=== PATIENT | female | born 1995 ===

== ENCOUNTER 2021-11-09 06:33 | Observation (INO) | payer BC ==
[2021-11-09] MEDS: Lactated Ringers 1,000 ML IV SCH ×3 (07:15→08:33)
[2021-11-09] MEDS ORDERED: Lidocaine 2% 5 ML SDV ONE (07:57)
[2021-11-09] MEDS ORDERED: Phenylephrine 1% 10 MG/ML SDV ONE (07:57)
[2021-11-09] MEDS ORDERED: Ondansetron 4 MG/2 ML SDV ONE (07:58)
[2021-11-09] MEDS ORDERED: ePHEDrine 50 MG/ML SDV IVPUSH PRN ×2 (07:59)
[2021-11-09] MEDS ORDERED: Ropivacaine in NACL,ISO-OSM/PF 800 MG in Premix Bag 1 BAG EPIDUR SCH ×2 (08:00)
[2021-11-09] MEDS ORDERED: Terbutaline 1 MG/ML SDV SUBCUT ONE (08:01)
== END 2021-11-09 12:05 | disposition home or self-care (01) ==
LOC: MW.OB 06:33 → INTOOBSV 06:33
PROVIDERS: ADMIT Obstetrics & Gynecology; ATTEND Obstetrics & Gynecology
DX: O32.1XX1 Maternal care for breech presentation, fetus 1 (principal); Z79.899 Other long term (current) drug therapy; Z3A.37 37 weeks gestation of pregnancy; Z01.812 Encounter for preprocedural laboratory examination; Z20.822 Contact with and (suspected) exposure to COVID-19
CPT/HCPCS: 36415; 51702; 59025; 59412; 76815; 85025; 86592; 86850; 86900; 86901; 87635; 90384; J2370; J2405; J3105; J7120; J2790; U0002

== ENCOUNTER 2021-11-19 04:53 | Inpatient (IN) | payer BC ==
[2021-11-19] MEDS: Lactated Ringers 1,000 ML IV SCH ×3 (05:10→08:25)
[2021-11-19] MEDS ORDERED: Sodium Chloride 0.9% 2.5 ML Syringe FLUSH PRN (05:22)
[2021-11-19] MEDS ORDERED: Citric Acid/Sodium Citrate Solution 30 ML Cup PO ONE (05:22)
[2021-11-19] MEDS ORDERED: Sodium Chloride 0.9% 20 ML SDV IV PRN (05:22)
[2021-11-19] MEDS ORDERED: Sodium Chloride 0.9% 10 ML Syringe FLUSH PRN (05:22)
[2021-11-19] MEDS ORDERED: Oxytocin/0.9 % Sodium Chloride 30 UNIT/500 ML BAG IV SCH (05:30)
[2021-11-19] MEDS ORDERED: fentaNYL 100 MCG/2 ML SDV ONE (06:04)
[2021-11-19] MEDS ORDERED: ceFAZolin 1 GM Vial ONE ×2 (06:04→06:05)
[2021-11-19] MEDS ORDERED: fentaNYL 100 MCG/2 ML SDV IVPUSH PRN (06:04)
[2021-11-19] MEDS ORDERED: Ondansetron 4 MG/2 ML SDV ONE ×2 (06:04)
[2021-11-19] MEDS ORDERED: diphenhydrAMINE 50 MG/ML SDV IVPUSH PRN ×2 (06:04→09:16)
[2021-11-19] MEDS ORDERED: ePHEDrine 50 MG/ML SDV IVPUSH PRN ×2 (06:04)
[2021-11-19] MEDS ORDERED: Ondansetron 4 MG/2 ML SDV IVPUSH PRN ×2 (06:04→14:16)
[2021-11-19] MEDS ORDERED: Lidocaine 2% 100 MG/5 ML Syringe ONE (06:05)
[2021-11-19] MEDS ORDERED: Morphine PF 10 MG/10 ML SDV ONE (06:05)
[2021-11-19] MEDS ORDERED: Oxytocin 10 Units/1 ML SDV ONE ×3 (06:05)
[2021-11-19] MEDS ORDERED: Dexamethasone 4 MG/ML 5 ML MDV ONE (06:05)
[2021-11-19] MEDS ORDERED: Ropivacaine in NACL,ISO-OSM/PF 800 MG in Premix Bag 1 BAG EPIDUR SCH ×2 (06:15)
[2021-11-19] MEDS ORDERED: Octyl 2-Cyanoacrylate 1 Tube ONE (06:44)
[2021-11-19] MEDS ORDERED: ceFAZolin 2 GM in Premix Bag 1 BAG IV ONE (06:45)
[2021-11-19] MEDS ORDERED: Ropivacaine/Ketorolac/Ketamine 100-15-30/50 ML Syringe INJECT ONE (07:00)
[2021-11-19] MEDS ORDERED: Ketorolac 30 MG/ML SDV ONE (07:41)
[2021-11-19] MEDS ORDERED: Bisacodyl 10 MG Supp RECTAL PRN (09:16)
[2021-11-19] MEDS ORDERED: Acetaminophen/oxyCODONE 325-5 MG Tab PO PRN (09:16)
[2021-11-19] MEDS ORDERED: Lanolin 100% Cream 7 GM Tube TOP PRN (09:16)
[2021-11-19] MEDS ORDERED: Methylergonovine 0.2 MG/1 ML Amp IM PRN (09:16)
[2021-11-19] MEDS ORDERED: Tranexamic Acid 1,000 MG in Sodium Chloride 0.9% 100 ML IV PRN (09:16)
[2021-11-19] MEDS ORDERED: Misoprostol 200 MCG Tab RECTAL PRN (09:16)
[2021-11-19] MEDS ORDERED: Lactated Ringers 1,000 ML IV SCH (09:30)
[2021-11-19] MEDS ORDERED: Ketorolac 30 MG/ML SDV IVPUSH SCH (09:30)
[2021-11-19] MEDS ORDERED: Acetaminophen 1,000 MG in Premix Bag 1 BAG IV ONE (13:30)
[2021-11-19] MEDS: Ketorolac 30 MG/ML SDV IVPUSH SCH ×2 (13:38→20:26)
[2021-11-19] MEDS: Docusate Sodium 100 MG Cap PO SCH (20:25)
[2021-11-20] MEDS: Ketorolac 30 MG/ML SDV IVPUSH SCH ×2 (02:34→09:07)
[2021-11-20] MEDS: Docusate Sodium 100 MG Cap PO SCH ×2 (09:07→21:20)
[2021-11-20] MEDS: Acetaminophen/oxyCODONE 325-5 MG Tab PO PRN ×2 (14:45→22:20)
[2021-11-20] MEDS: Ibuprofen 800 MG Tab PO PRN (21:19)
[2021-11-21] MEDS: Acetaminophen/oxyCODONE 325-5 MG Tab PO PRN ×2 (02:54→13:15)
[2021-11-21] MEDS: Ibuprofen 800 MG Tab PO PRN (08:29)
== END 2021-11-21 13:43 | disposition home or self-care (01) | DRG 540 ==
LOC: MW.OB 04:53
PROVIDERS: ADMIT Obstetrics & Gynecology; ATTEND Obstetrics & Gynecology
PROC: 10D00Z1 Extraction of Products of Conception, Low, Open Approach (ICD-10-PCS; principal; 2021-11-19)
DX: O64.1XX0 Obstructed labor due to breech presentation, not applicable or unspecified (principal); Z3A.39 39 weeks gestation of pregnancy; Z37.0 Single live birth
CPT/HCPCS: 01961; 36415; 59025; 64488; 85014; 85018; 85027; 85460; 86592; 86850; 86900; 86901; A9270-GY; J0131; J0690; J1100; J1885; J2274; J2405; J2590; J2790; J3010; J7120; U0002